=== PATIENT | female | born 1975 | race Caucasian/White ===

== ENCOUNTER 2017-11-30 13:27 | Emergency (ER) | payer BC ==
[2017-11-30 13:33] VITALS: BP 119/73; PULSE 121; RESP 18; TEMP 98
[2017-11-30] MEDS ORDERED: MORPHINE SULFATE 2 MG/ML SYRINGE IM STA (13:38)
[2017-11-30] MEDS ORDERED: ORPHENADRINE 30 MG/ML 2 ML VIAL IM STA (13:40)
[2017-11-30] MEDS ORDERED: ONDANSETRON ODT 4 MG TAB PO STA (13:58)
--- NOTE | 2017-11-30 14:30 | XR ---
EXAMINATION TYPE: XR elbow complete LT DATE OF EXAM: 11/30/2017 CLINICAL HISTORY: Pain post fall TECHNIQUE: Frontal, lateral and oblique images of the left elbow are obtained. COMPARISON: None FINDINGS: Hemarthrosis inside the joint spaces with elevated fat pad. There is a fracture involving t he distal lateral humeral epicondyles. On the lateral projection a fragment of the distal humeral epi condyle is partially rotated. IMPRESSION: Acute fracture of the distal humerus on the level of the distal lateral epicondyle with p artial rotation of the fragment. Hemarthrosis inside the joint space.
--- NOTE | 2017-11-30 14:39 | ED ---
Upper Extremity HPI - General Chief Complaint: Extremity Injury, Upper Stated Complaint: fall, lt elbow injury Time Seen by Provider: 11/30/17 13:34 Source: patient, RN notes reviewed, old records reviewed Mode of arrival: wheelchair Limitations: no limitations - History of Present Illness Initial Comments: 42-year-old female chief complaint of left elbow pain. She will pursue was running and she fell with her elbow bent the ground. She reports that she's having severe muscle spasms since then and is keeping her arm in a extended position. She reports that she has range of motion in her fingers and wrist. She denies any shoulder or wrist or hand pain. Patient states that she feels numbness and tingling down the ulnar aspect of her fingers and hand. Patient states that she's had no prior orthopedic history. She is right-handed. - Related Data Allergies Allergy/AdvReac Type Severity Reaction Status Date / Time No Known Allergies Allergy Verified 11/30/17 13:31 Review of Systems ROS Statement: Those systems with pertinent positive or pertinent negative responses have been documented in the HPI. ROS Other: All systems not noted in ROS Statement are negative. Past Medical History Past Medical History: No Reported History History of Any Multi-Drug Resistant Organisms: None Reported Past Surgical History: Orthopedic Surgery Past Psychological History: No Psychological Hx Reported Smoking Status: Never smoker Past Alcohol Use History: Occasional Past Drug Use History: None Reported General Exam - General Exam Comments Initial Comments: Patient arrives in moderate discomfort. 42-year-old female. Alert and oriented. Limitations: no limitations General appearance: alert, in no apparent distress Head exam: Present: atraumatic, normocephalic, normal inspection Eye exam: Present: normal appearance, PERRL, EOMI. Absent: scleral icterus, conjunctival injection, periorbital swelling ENT exam: Present: normal exam, mucous membranes moist Neck exam: Present: normal inspection. Absent: tenderness, meningismus, lymphadenopathy Respiratory exam: Present: normal lung sounds bilaterally. Absent: respiratory distress, wheezes, rales, rhonchi, stridor Cardiovascular Exam: Present: regular rate, normal rhythm, normal heart sounds. Absent: systolic murmur, diastolic murmur, rubs, gallop, clicks GI/Abdominal exam: Present: soft, normal bowel sounds. Absent: distended, tenderness, guarding, rebound, rigid Extremities exam: Present: full ROM, normal capillary refill. Absent: normal inspection, tenderness, pedal edema, joint swelling, calf tenderness Left Shoulder Exam: Present: normal inspection, full ROM Upper Arm exam: Present: normal inspection, full ROM Elbow exam: Present: tenderness (Over her lateral malleolus.). Absent: normal inspection, full ROM (Patient has hyperextension of the left elbow. Evidence of muscle spasms.) Forearm Wrist exam: Present: normal inspection, full ROM Hand Wrist exam: Present: normal inspection, full ROM Vascular: Present: normal capillary refill Back exam: Present: normal inspection Neurological exam: Present: alert, oriented X3, CN II-XII intact Psychiatric exam: Present: normal affect, normal mood Skin exam: Present: warm, dry, intact, normal color. Absent: rash Course Vital Signs 11/30/17 13:31 Temperature 98 F Pulse Rate 121 H Respiratory 18 Rate Blood Pressure 119/73 O2 Sat by Pulse 98 Oximetry Procedures - Orthopedic Splinting/Casting Injury #1 Side: left Upper Extremity Injury Location: elbow Upper Extremity Immobilizer: posterior splint, Randy wrap, synthetic pre-padded splint Additional Comments: Patient would not tolerate 90 flexion of the elbow. Patient's elbow was splinted with best ability with limitation of patient pain. was reevaluated and neurovascularly intact. Medical Decision Making - Medical Decision Making 42-year-old female presents emergency Department with left elbow pain after fall. She has been arm hyperextended and the muscles are spasming. Patient was given Norflex and morphine. X-ray was obtained. Evidence of distal humerus fracture. I discussed the case with on-call orthopedic. They recommended transfer to a tertiary facility. Patient will be placed in a posterior splint, with the best viability. Patient would not tolerate 90 flexion without severe spasming of the arm. Patient is neurovascularly intact less than 2 second capillary refill. Full range motion of the finger and wrist. I discussed case with Dr. Lubna Sorensen, whom accepts transfer. - Radiology Data Radiology results: report reviewed Acute fracture of the distal humerus on the level of the distal lateral epicondyle with partial rotation of the fragment. Hemarthrosis inside the joint space. Disposition Clinical Impression: Fracture of lateral epicondyle of left humerus, Spasm Disposition: DC/TRNS INTERMEDIATE CARE FAC Condition: Stable Is patient prescribed a controlled substance at d/c from ED?: No When asked, does pt state using other controlled substances?: No If prescribed controlled substance>3 days was MAPS reviewed?: No If opioid is for acute pain is fill amount 7 days or less?: No If Rx opioid, was Start Talking consent form obtained?: No Referrals: None,Stated [Primary Care Provider] - 1-2 days Time of Disposition: 15:39 - Out of Hospital Transfer - Req. Specs Out of Hospital Transfer - Requested Specifics: Other Emergency Center ([facility])
[2017-11-30] MEDS ORDERED: MORPHINE SULFATE 2 MG/ML SYRINGE IVP STA (14:53)
[2017-11-30] MEDS ORDERED: SODIUM CHLORIDE 0.9% 1,000 ML IV SCH (15:00)
[2017-11-30] MEDS ORDERED: DIAZEPAM 5 MG/ML 2 ML INJ IVP STA (15:40)
--- NOTE | 2017-11-30 16:01 | ED ---
Disposition Clinical Impression: Fracture of lateral epicondyle of left humerus, Spasm Disposition: DC/TRNS INTERMEDIATE CARE FAC Condition: Stable Instructions: Elbow Fracture (ED) Additional Instructions: Patient needs to go directly to [facility]. Do not eat or drink anything from here to [facility]. Is patient prescribed a controlled substance at d/c from ED?: No Referrals: None,Stated [Primary Care Provider] - 1-2 days Time of Disposition: 16:00 - Out of Hospital Transfer - Req. Specs Out of Hospital Transfer - Requested Specifics: Other Emergency Center ([facility])
== END 2017-11-30 16:10 ==
LOC: EC 13:27
DX: S42.432A Displaced fracture (avulsion) of lateral epicondyle of left humerus, initial encounter for closed fracture (principal); W01.0XXA Fall on same level from slipping, tripping and stumbling without subsequent striking against object, initial encounter; Y93.02 Activity, running
CPT/HCPCS: 73080; 99285; 29105; 96374; 96375; 96361; 96372 ×2; J2360; J3360; J2270